=== PATIENT | male | born 1965 | race African-American/Black ===

== ENCOUNTER 2020-05-06 21:35 | Inpatient (IN) | payer OTHER ==
[~2020-05-06] VITALS: Ht 172.7 cm; Wt 65.8 kg
[2020-05-06 21:43] VITALS: Ht 172.7 cm; Wt 65.8 kg
[2020-05-06 23:50] LABS: BASOPHIL % 0.4 % (0-2); PLATELET COUNT 170 x10^3mcL (130-400); RED CELL DISTRIBUTION WIDTH 13.6 % (11.5-14.5)
[2020-05-07 00:04] LABS: ALBUMIN 3.5 g/dL (3.4-5.0); ALKALINE PHOSPHATASE 81 U/L (46-116); ALT/SGPT 18 U/L (16-63); AST/SGOT 20 U/L (15-37); BILIRUBIN TOTAL 0.7 mg/dL (0.20-1.00); CALCIUM 8.2 mg/dL (8.5-10.1); CARBON DIOXIDE 29.8 mmol/L (21-32); CHLORIDE SERUM 104 mmol/L (98-107); CHOLESTEROL 151 mg/dL (<200); CREATININE SERUM 1.6 mg/dL (0.7-1.3); GFR1 48 mL/min; GLUCOSE SERUM 97 mg/dL (74-106); LIPASE 165 IU/L (73-393); POTASSIUM SERUM 3.4 mmol/L (3.5-5.1); SODIUM SERUM 140 mmol/L (136-145); TOTAL PROTEIN, SERUM 6.8 g/dL (6.4-8.2); TRIGLYCERIDES 81 mg/dL (<150)
[2020-05-07 00:06] LABS: CHOLESTEROL/HDL RATIO 2.4; HDL CHOLESTEROL 62 mg/dL (40-60)
[2020-05-07 00:18] LABS: FREE T4 1.05 ng/dL (0.76-1.46); FREE THYROXINE INDEX 2.2 ug/dL (1.4-4.5); T4(THYROXINE) 6.4 ug/dL (4.7-13.3)
[2020-05-07 00:37] LABS: T3 TOTAL 1.01 ng/mL
[2020-05-07 01:00] LABS: UA SPECIFIC GRAVITY 1.015 (1.005-1.035); microscopic required? YES; urine erythrocyte TRACE (NEGATIVE)
[2020-05-07 01:37] LABS: AMPHETAMINE QUAL UR NONE DETECTED (See below)
[2020-05-07] MEDS ORDERED: AMLODIPINE BESY10 M2 PO (03:43)
[2020-05-07] MEDS ORDERED: LISINOPRIL40 MG PO (03:43)
[2020-05-07] MEDS ORDERED: ATHLETE'S FOOT1% TOP (03:44)
[2020-05-07] MEDS ORDERED: LISINOPRIL10 MG (03:44)
[2020-05-07 04:51] VITALS: BP 158/91
[2020-05-07 06:48] LABS: BASOPHIL % 0.1 % (0-2); PLATELET COUNT 160 x10^3mcL (130-400); RED CELL DISTRIBUTION WIDTH 13.6 % (11.5-14.5)
[2020-05-07 07:08] LABS: CALCIUM 7.9 mg/dL (8.5-10.1); CARBON DIOXIDE 28.1 mmol/L (21-32); CHLORIDE SERUM 107 mmol/L (98-107); CREATININE SERUM 1.3 mg/dL (0.7-1.3); GFR1 > 60 mL/min; GLUCOSE SERUM 115 mg/dL (74-106); MAGNESIUM 2.2 mg/dL (1.8-2.4); POTASSIUM SERUM 3.4 mmol/L (3.5-5.1); SODIUM SERUM 142 mmol/L (136-145)
[2020-05-07 08:02] VITALS: BP 169/86
[2020-05-07] MEDS ORDERED: LEVAQUIN500 M1 PO ×2 (09:51→09:58)
[2020-05-07] MEDS ORDERED: LAC PO ×2 (09:51→10:01)
[2020-05-07] MEDS ORDERED: KEFLEX500 M1 PO (12:55)
[2020-05-07 15:47] VITALS: BP 122/70
== END 2020-05-07 16:25 | disposition home or self-care (01) | DRG 48 ==
LOC: ED 21:35 → DU 05-07 03:18
PROVIDERS: Specialist; ADMIT Internal Medicine; ATTEND Internal Medicine
DX: G90.8 Other disorders of autonomic nervous system (principal); N17.0 Acute kidney failure with tubular necrosis; D72.829 Elevated white blood cell count, unspecified; I10 Essential (primary) hypertension; Z87.891 Personal history of nicotine dependence; E86.0 Dehydration; F19.10 Other psychoactive substance abuse, uncomplicated; Z79.899 Other long term (current) drug therapy; N39.0 Urinary tract infection, site not specified
CPT/HCPCS: 83880; 84439; 97116-GP; G0378; G0480; J0696; J2920; J7030; J7060; Q0092; Q0163